=== PATIENT | male | born 1970 | race Caucasian/White ===

== ENCOUNTER 2023-11-20 11:00 | Emergency (ER) | payer BC ==
[~2023-11-20] VITALS: Ht 188 cm; Wt 82.1 kg
[2023-11-20] MEDS ORDERED: IBUP-1955 PO (12:15)
[2023-11-20] MEDS: TDAP [DIPH/PERTUSSIS/TET] 0.5 ML VIAL IM ONE (12:22)
[2023-11-20] MEDS: BACI/NEOM/POLY B OINT PKT 1 UDPKT PACKET TP ONE (12:26)
[2023-11-20 13:24] VITALS: BP 133/81; TEMP 98.4; O2SAT 100
== END 2023-11-20 13:25 | disposition home or self-care (01) ==
LOC: ER 11:14
DX: S62.394A Other fracture of fourth metacarpal bone, right hand, initial encounter for closed fracture (principal); R07.89 Other chest pain; Z79.899 Other long term (current) drug therapy; Z60.2 Problems related to living alone; W17.89XA Other fall from one level to another, initial encounter; Y93.89 Activity, other specified; Y92.89 Other specified places as the place of occurrence of the external cause; Y99.8 Other external cause status
CPT/HCPCS: 71100-TC; 73130-TC